=== PATIENT | female | born 1975 | race Caucasian/White ===

== ENCOUNTER → 2016-02-21 | Outpatient (CLI) | payer MEDICAID ==
[2016-02-21 08:06] LABS: Basophils # (A) 0.1 k/uL (0-0.2); Basophils % (A) 1 %; CH 29.3; CHCM 33.4; Eosinophils # (A) 0.3 k/uL (0-0.7); Eosinophils % (A) 4 %; HCT 39.5 % (34.0-46.0); HDW 2.73; HGB 12.8 gm/dL (11.4-16.0); Luc # (Auto) 0.13; Luc % (Auto) 2; Lymphocytes % (A) 30 %; MCH 28.6 pg (25.0-35.0); MCHC 32.5 g/dL (31.0-37.0); MCV 88.1 fL (80.0-100.0); Mean Platelet Volume 7.5; Monocytes # (A) 0.4 k/uL (0-1.0); Monocytes % (A) 6 %; Neutrophils # (A) 3.7 k/uL (1.3-7.7); Neutrophils % (A) 57 %; RBC 4.49 m/uL (3.80-5.40); RDW 13.4 % (11.5-15.5); WBC 6.6 k/uL (3.8-10.6); WBC (Perox) 6.83
[2016-02-21 08:25] LABS: ALT 44 U/L (9-52); AST 23 U/L (14-36); Alkaline Phosphatase 63 U/L (38-126); Anion Gap 12 mmol/L; Bilirubin, Delta 0.3 mg/dL (0.0-0.2); Blood Urea Nitrogen 11 mg/dL (7-17); Calcium 9.3 mg/dL (8.4-10.2); Carbon Dioxide 28 mmol/L (22-30); Chloride 104 mmol/L (98-107); Glucose 110 mg/dL (74-99); Non-African American GFR(MDRD) >60 (>60 ml/min/1.73 sqM); Potassium 4.4 mmol/L (3.5-5.1); Sodium 144 mmol/L (137-145); Total Bilirubin 0.5 mg/dL (0.2-1.3); Total Protein 7.3 g/dL (6.3-8.2)
== END | disposition home or self-care (01) ==
LOC: LABWHC1 07:32
PROVIDERS: ATTEND Family Medicine
DX: E03.9 Hypothyroidism, unspecified (principal)
CPT/HCPCS: 36415; 80053; 82248; 84439; 84443; 85025

== ENCOUNTER → 2016-06-13 | Outpatient (CLI) | payer MEDICAID ==
--- NOTE | 2016-06-14 08:17 | MR ---
EXAMINATION TYPE: MR knee LT wo con DATE OF EXAM: 06/13/2016 8:20 PM COMPARISON: MRI of the left knee dated 01/26/2013. HISTORY: ongoing pain x3 years gotten worse TECHNIQUE: Multiplanar, multisequence imaging of the left knee is performed without IV contrast. FINDINGS: MEDIAL MENISCUS: Anterior horn is intact. Subtle intrinsic signal within the posterior horn is unchan ged dating back to exam of 01/26/2013 and represents myxoid degeneration as there is no continuity wi th the articular surface. LATERAL MENISCUS: Again the posterior horn is intact. There is redemonstration of a complex tear with in the anterior horn with increasing size of a para meniscal cysts previously measured at 5.4 mm and currently measured at 8.8 mm. CRUCIATE LIGAMENTS: The cruciate ligaments are intact although there is generalized increased signal of the anterior cruciate ligament and thickening similar in appearance to the prior exam representing mucoid degeneration. Angle of the anterior cruciate ligament is within normal limits. COLLATERAL LIGAMENTS: The medial collateral ligament and lateral collateral ligament complex are inta ct and unremarkable. EXTENSOR MECHANISM: Visualized quadriceps and patellar tendons are intact. EFFUSION: There is increased degree of joint fluid that has developed in the interim now compatible with a small to moderate joint effusion. POPLITEAL CYST: Although there is a small amount of fluid adjacent to the medial tendon of the gastr ocnemius there is no measurable popliteal/San's cyst.. TRICOMPARTMENT SPACES: CARTILAGE: Near full-thickness cartilaginous loss is seen of the posterior medial femoral condyle. No underlying abnormal bone marrow signal is appreciated. Intrinsic T2 hyperintensity is present of the patellar cartilage along the lateral facet. Trochlear cartilage is unremarkable as is the medial pat ellar cartilage. There is unchanged minimal fissuring in the medial compartment cartilage in comparis on to the prior exam. BONE MARROW SIGNAL: Distal femoral lateral subchondral cystic changes are redemonstrated as well as s ubchondral cyst of the tibia deep to the mid medial lateral meniscal tear. Cortex appears intact as t here is no evidence of osteochondral defect. OTHER: No additional significant abnormality is appreciated. IMPRESSION: 1. Redemonstration of a complex evolving tear of the anterior horn of the lateral meniscus with assoc iated enlarging para-meniscal cyst.. 2. New subchondral cystic change within the lateral tibial plateau deep to the meniscal tear as seque la of complex meniscal injury. 3. 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 4. 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
== END | disposition home or self-care (01) ==
LOC: RADMRIMAIN 19:40
PROVIDERS: ATTEND Orthopaedic Surgery Sports Medicine
DX: S83.272A Complex tear of lateral meniscus, current injury, left knee, initial encounter (principal)

== ENCOUNTER → 2016-07-03 | Outpatient (CLI) | payer MEDICAID ==
[2016-07-03 08:44] LABS: Basophils # (A) 0.1 k/uL (0-0.2); Basophils % (A) 1 %; CH 29.6; Eosinophils # (A) 0.7 k/uL (0-0.7); Eosinophils % (A) 14 %; HCT 37.9 % (34.0-46.0); HGB 12.9 gm/dL (11.4-16.0); Luc # (Auto) 0.08; Luc % (Auto) 2; Lymphocytes # (A) 1.7 k/uL (1.0-4.8); Lymphocytes % (A) 33 %; MCH 29.8 pg (25.0-35.0); MCHC 34.1 g/dL (31.0-37.0); MCV 87.4 fL (80.0-100.0); Mean Platelet Volume 6.7; Monocytes # (A) 0.4 k/uL (0-1.0); Monocytes % (A) 7 %; Neutrophils # (A) 2.2 k/uL (1.3-7.7); Neutrophils % (A) 44 %; RBC 4.33 m/uL (3.80-5.40); RDW 13.2 % (11.5-15.5); WBC (Perox) 4.59
[2016-07-03 09:01] LABS: ALT 43 U/L (9-52); AST 24 U/L (14-36); Alkaline Phosphatase 58 U/L (38-126); Anion Gap 10 mmol/L; Bilirubin, Delta 0.3 mg/dL (0.0-0.2); Blood Urea Nitrogen 15 mg/dL (7-17); Calcium 9.2 mg/dL (8.4-10.2); Carbon Dioxide 23 mmol/L (22-30); Chloride 108 mmol/L (98-107); Glucose 113 mg/dL (74-99); Non-African American GFR(MDRD) >60 (>60 ml/min/1.73 sqM); Potassium 4.4 mmol/L (3.5-5.1); Sodium 141 mmol/L (137-145); Total Bilirubin 0.7 mg/dL (0.2-1.3); Total Protein 7.5 g/dL (6.3-8.2)
== END | disposition home or self-care (01) ==
LOC: LABWHC1 08:15
PROVIDERS: ATTEND Family Medicine
DX: F41.1 Generalized anxiety disorder (principal); R53.83 Other fatigue
CPT/HCPCS: 36415; 80053; 82248; 84439; 84443; 85025

== ENCOUNTER 2018-08-15 16:18 | Emergency (ER) | payer MEDICAID ==
[2018-08-15 17:25] VITALS: TEMP 97.5
[2018-08-15] MEDS ORDERED: methylPREDNISolone SOD SUCCI 125 MG/2 ML VIAL IV STA (17:36)
[2018-08-15] MEDS ORDERED: MORPHINE SULFATE 4 MG/ML SYRINGE IVP STA (17:36)
--- NOTE | 2018-08-15 17:39 | ED ---
Back Pain HPI - General Chief Complaint: Back Pain/Injury Stated Complaint: lower back pain/leg weakness Time Seen by Provider: 08/15/18 17:28 Source: patient Limitations: no limitations - History of Present Illness Initial Comments: Review 3-year-old female presenting with back pain that began on . Patient states that she felt a tearing sensation while getting dressed in her left paralumbar area. She states since then the pain has gotten progressively worse and is causing pressure radiating around to her bilateral groin. She states the pain is worse with movement and not improved or alleviated by anything. She's been trying Motrin at home with no relief. She denies any urinary symptoms, fever chills, back injections. She does state that she had a laminectomy 12 years prior. She denies saddle anesthesia. She states she has had 5-6 loose stools this week which is abnormal for her and she denies any history of inflammatory bowel disease. - Related Data Home Medications Medication Instructions Recorded Confirmed Protein Shake 1 can PO QAM 04/26/15 04/26/15 Thrive 2 tab PO QAM 04/26/15 04/26/15 Previous Rx's Medication Instructions Recorded Cyclobenzaprine [Flexeril] 10 mg PO TID PRN #12 tab 08/15/18 HYDROcodone/APAP 5-325MG [Fertile 1 tab PO Q4HR PRN 3 Days #18 tab 08/15/18 5-325] Allergies Allergy/AdvReac Type Severity Reaction Status Date / Time No Known Allergies Allergy Verified 08/15/18 17:25 Review of Systems ROS Statement: Those systems with pertinent positive or pertinent negative responses have been documented in the HPI. Review of Systems Constitutional: Denies fever, chills Eyes: Denies change in vision, Denies pain Ears, nose, mouth, throat: Denies headaches, Denies sore throat Cardiovascular: Denies chest pain. Denies palpitations Respiratory: Denies shortness of breath, Denies cough Gastrointestinal: Denies abdominal pain. Denies nausea, vomiting, diarrhea. Genitourinary: Denies hematuria, Denies infections Musculoskeletal: Positive pain, Denies swelling Integumentary: Denies rash Neurological: Denies headache, focal weakness, focal numbness Psychiatric: Denies anxiety, Denies depression Hematologic/Lymphatic: Denies easy bleeding or bruising ROS Other: All systems not noted in ROS Statement are negative. Past Medical History Past Medical History: No Reported History History of Any Multi-Drug Resistant Organisms: None Reported Date of last positivie culture/infection: 2005 MDRO Source:: nose Past Surgical History: Back Surgery Additional Past Surgical History / Comment(s): laminectomy, meniscus Past Anesthesia/Blood Transfusion Reactions: No Reported Reaction Past Psychological History: No Psychological Hx Reported Smoking Status: Never smoker Past Alcohol Use History: Occasional Past Drug Use History: None Reported - Past Family History Father Family Medical History: Cancer, Coronary Artery Disease (CAD) Additional Family Medical History / Comment(s): emphysema, bladder ca Mother Family Medical History: Congestive Heart Failure (CHF), Coronary Artery Disease (CAD), Diabetes Mellitus, Renal Disease Additional Family Medical History / Comment(s): cabg x 4, emphysema General Exam - General Exam Comments Initial Comments: General: Awake, alert, No acute Distress HENT: Normocephalic. Atraumatic Eyes: PERRL. EOMI. No scleral icterus. No injected conjunctiva Neck: Full ROM Chest/Lungs: Clear to auscultation bilaterally. No wheezing, rhonchi, or rales Cardiac: Regular rate, rhythm. No murmurs or rubs Abdomen/GI: Soft, nontender, nondistended. No rebound, guarding, or rigidity. Musculoskeletal: Full ROM. No midline cervical, thoracic, lumbar pain. Tenderness to palpation at the left paraspinal thoracolumbar junction. L2 through S1 sensation intact bilaterally Skin: Warm, dry, intact Neurologic: A/Ox3, no weakness, no sensory deficit, no abnormal gait, no coordination deficit Limitations: no limitations Course Vital Signs 08/15/18 08/15/18 08/15/18 17:22 20:33 21:58 Temperature 97.5 F L 97.5 F L Pulse Rate 103 H 77 77 Respiratory 18 16 16 Rate Blood Pressure 139/79 137/73 137/73 O2 Sat by Pulse 98 97 97 Oximetry Medical Decision Making - Medical Decision Making 43 yoF presenting with back pain. On initial exam the patient is awake, alert, and in NAD. VSS. The patient has no cauda equina symptoms. She is neurologically intact. Patient's laboratory workup was unremarkable. She had no leukocytosis. He has no history of back injections. Her imaging showed a hiatal hernia. The patient described a large belch before the pain started. It is possible that her symptoms are secondary to the hiatal hernia. She is not having any nausea or vomiting and she is still passing gas. Her symptoms improved with treatment while in the emergency department, however they did not completely resolved. I offered the patient admission but this time she declined stating she would like to follow up outpatient with her physician. She was also given general surgery follow up information. No further emergent workup indicated. The patient was given return to ED instructions. They were instructed to follow up with their primary care provider. Stable for discharge at this time. - Lab Data Result diagrams: 08/15/18 18:13 08/15/18 18:13 Lab Results 08/15/18 08/15/18 08/15/18 Range/Units 18:13 18:13 18:21 WBC 7.3 (3.8-10.6) k/uL RBC 4.57 (3.80-5.40) m/uL Hgb 12.4 (11.4-16.0) gm/dL Hct 38.7 (34.0-46.0) % MCV 84.9 (80.0-100.0) fL MCH 27.3 (25.0-35.0) pg MCHC 32.1 (31.0-37.0) g/dL RDW 13.8 (11.5-15.5) % Plt Count 275 (150-450) k/uL Neutrophils % 58 % Lymphocytes % 25 % Monocytes % 4 % Eosinophils % 11 % Basophils % 1 % Neutrophils # 4.2 (1.3-7.7) k/uL Lymphocytes # 1.8 (1.0-4.8) k/uL Monocytes # 0.3 (0-1.0) k/uL Eosinophils # 0.8 H (0-0.7) k/uL Basophils # 0.1 (0-0.2) k/uL Sodium 140 (137-145) mmol/L Potassium 4.2 (3.5-5.1) mmol/L Chloride 107 (98-107) mmol/L Carbon Dioxide 23 (22-30) mmol/L Anion Gap 10 mmol/L BUN 16 (7-17) mg/dL Creatinine 1.04 (0.52-1.04) mg/dL Est GFR (CKD-EPI)AfAm 76 (>60 ml/min/1.73 sqM) Est GFR (CKD-EPI)NonAf 66 (>60 ml/min/1.73 sqM) Glucose 93 (74-99) mg/dL Calcium 9.9 (8.4-10.2) mg/dL Total Bilirubin 0.3 (0.2-1.3) mg/dL Conjugated Bilirubin 0.0 (0.0-0.3) mg/dL Unconjugated Bilirubin 0.3 (0.0-1.1) mg/dL Delta Bilirubin 0.0 (0.0-0.2) mg/dL AST 22 (14-36) U/L ALT 24 (9-52) U/L Alkaline Phosphatase 69 (38-126) U/L Total Protein 7.8 (6.3-8.2) g/dL Albumin 4.5 (3.5-5.0) g/dL Lipase 77 (23-300) U/L HCG, Qual Not Detected Urine Color Yellow Urine Appearance Clear (Clear) Urine pH 5.5 (5.0-8.0) Ur Specific [place] 1.027 (1.001-1.035) Urine Protein Negative (Negative) Urine Glucose (UA) Negative (Negative) Urine Ketones Negative (Negative) Urine Blood Small H (Negative) Urine Nitrite Negative (Negative) Urine Bilirubin Negative (Negative) Urine Urobilinogen <2.0 (<2.0) mg/dL Ur Leukocyte Esterase Small H (Negative) Urine RBC 1 (0-5) /hpf Urine WBC 2 (0-5) /hpf Ur Squamous Epith Cells 4 (0-4) /hpf Urine Mucus Rare H (None) /hpf Disposition Clinical Impression: Hiatal hernia, Back pain Disposition: HOME SELF-CARE Condition: Good Instructions (If sedation given, give patient instructions): Hiatal Hernia (ED), Thoracic Back Strain (ED), Laparoscopic Hiatal Hernia Repair (DC) Prescriptions: Cyclobenzaprine [Flexeril] 10 mg PO TID PRN #12 tab PRN Reason: Pain HYDROcodone/APAP 5-325MG [Fertile 5-325] 1 tab PO Q4HR PRN 3 Days #18 tab PRN Reason: Pain Is patient prescribed a controlled substance at d/c from ED?: Yes Referrals: Dre Peña MD [Primary Care Provider] - 1-2 days Janki Shaw MD [STAFF PHYSICIAN] - 1-2 days
[2018-08-15] MEDS ORDERED: KETOROLAC 30 MG/ML 1 ML VIAL IVP STA ×2 (18:18→20:07)
[2018-08-15 18:40] LABS: Basophils # (A) 0.1 k/uL (0-0.2); Basophils % (A) 1 %; Eosinophils # (A) 0.8 k/uL (0-0.7); Eosinophils % (A) 11 %; HCT 38.7 % (34.0-46.0); HGB 12.4 gm/dL (11.4-16.0); Lymphocytes # (A) 1.8 k/uL (1.0-4.8); Lymphocytes % (A) 25 %; MCH 27.3 pg (25.0-35.0); MCHC 32.1 g/dL (31.0-37.0); MCV 84.9 fL (80.0-100.0); Mean Platelet Volume 6.6; Monocytes # (A) 0.3 k/uL (0-1.0); Monocytes % (A) 4 %; Neutrophils # (A) 4.2 k/uL (1.3-7.7); Neutrophils % (A) 58 %; Platelet Count 275 k/uL (150-450); RBC 4.57 m/uL (3.80-5.40); RDW 13.8 % (11.5-15.5); WBC 7.3 k/uL (3.8-10.6)
[2018-08-15 18:45] LABS: Appearance,Urine Clear (Clear); Bilirubin,Urine Negative (Negative); Blood,Urine Small (Negative); Color,Urine Yellow; Glucose,Urine (UA) Negative (Negative); Ketones,Urine Negative (Negative); Leukocyte Esterase,Urine Small (Negative); Mucus,Urine Rare /hpf; Nitrite,Urine Negative (Negative); PH, Urine 5.5 (5.0-8.0); Protein,Urine Negative (Negative); RBC,Urine 1 /hpf (0-5); Specific Gravity,Urine 1.027 (1.001-1.035); Squamous Epithelial Cell,Urine 4 /hpf (0-4); Urobilinogen,Urine <2.0 mg/dL (<2.0)
[2018-08-15 18:54] LABS: HCG,Qualitative Serum Not Detected
[2018-08-15 18:56] LABS: ALT 24 U/L (9-52); AST 22 U/L (14-36); African American GFR (CKD) 76 (>60 ml/min/1.73 sqM); Albumin 4.5 g/dL (3.5-5.0); Alkaline Phosphatase 69 U/L (38-126); Anion Gap 10 mmol/L; Bilirubin,Unconjugated 0.3 mg/dL (0.0-1.1); Blood Urea Nitrogen 16 mg/dL (7-17); Calcium 9.9 mg/dL (8.4-10.2); Carbon Dioxide 23 mmol/L (22-30); Chloride 107 mmol/L (98-107); Glucose 93 mg/dL (74-99); Lipase 77 U/L (23-300); Potassium 4.2 mmol/L (3.5-5.1); Sodium 140 mmol/L (137-145); Total Bilirubin 0.3 mg/dL (0.2-1.3); Total Protein 7.8 g/dL (6.3-8.2)
--- NOTE | 2018-08-15 19:23 | XR ---
EXAMINATION TYPE: XR lumbar spine 2 or 3V DATE OF EXAM: 08/15/2018 COMPARISON: NONE HISTORY: 43-year-old female low back pain TECHNIQUE: 3 views FINDINGS: Rotary levoconvex scoliosis. There is interbody fusion at L4-L5 as well as posterior facet fusion dem onstrated. Vertebral body heights are preserved. Trace grade 1 retrolisthesis L2-L3 and L3-L4. IMPRESSION: Rotary levoconvex scoliosis. Posterior and interbody fusion at L4-L5. Trace grade 1 retrolisthesis at L2-L3 L3-L4. No vertebral collapse.
[2018-08-15] MEDS ORDERED: HYDROcodone/APAP 5-325MG 1 EACH TAB PO STA (20:06)
[2018-08-15 20:35] VITALS: BP 137/73; PULSE 77; RESP 16
--- NOTE | 2018-08-15 21:39 | CT ---
EXAMINATION TYPE: CT abdomen pelvis wo con DATE OF EXAM: 08/15/2018 COMPARISON: None HISTORY: 43-year-old female Left sided low back pain. CT DLP: 1931.2 mGycm. Automated exposure control for dose reduction was used. TECHNIQUE: Contiguous axial scanning of the abdomen and pelvis without IV contrast. Coronal and sagit kole reconstructions performed. FINDINGS: Heart normal size without pericardial effusion. Lung bases clear without pleural effusion. There is a moderate size hiatal hernia. Liver measures 20.1 cm with low attenuation. Some focal fatty sparing along the gallbladder fossa and rosalinda hepatis. Gallbladder, adrenal glands, right kidney, left kidney, spleen, and pancreas show no gross abnormalit y by noncontrast CT. No dilated small bowel, free fluid, or free air. No mesenteric or retroperitoneal lymphadenopathy. Normal appendix. Scattered mild stool. Occasional left-sided colonic diverticular change. No pericolonic inflammatory process. Bladder nondistended. Uterus is anteverted. Both ovaries are visualized. No abnormal fluid collection in the pelvis or pelvic lymphadenopathy. Bones: Levoconvex scoliosis with interbody and posterior lumbar fusion at L4-L5. IMPRESSION: 1. Hepatomegaly (20.1 cm) with hepatic steatosis. Correlate with LFTs, lipid profile, and patient ri sk factors. 2. Moderate size hiatal hernia. 3. Occasional left-sided colonic diverticulosis. No evidence for acute diverticulitis.
[2018-08-15] MEDS ORDERED: CYCLOBENZAPRINE 10MG STARTER 3 TAB BTL PO STA (21:46)
== END 2018-08-15 21:58 | disposition home or self-care (01) ==
LOC: EC 16:18
DX: K44.9 Diaphragmatic hernia without obstruction or gangrene (principal); M54.5 Low back pain
CPT/HCPCS: 36415; 80048; 80076; 83690; 85025; 81001; 84703; 72100; 74176; 99284; 96374; 96375; 96376; J2930; J1885

== ENCOUNTER 2018-11-08 10:45 | Day surgery (SDC) | payer MEDICAID ==
[2018-11-05 08:56] VITALS: BMI 39.4
[~2018-11-08 10:45] MED LIST: LACTATED RINGERS 1,000 ML IV SCH; LIDOCAINE 1% 20 ML VIAL (10MG/ML) FOR IV START INTRADERMA PRN
[2018-11-08 11:09] VITALS: TEMP 98.9
[2018-11-08] MEDS ORDERED: LIDOCAINE 1% INJ 10MG/ML (20 ML MDV) ONE (11:46)
[2018-11-08] MEDS ORDERED: PROPOFOL 10 MG/ML 20 ML VIAL IV ONE (11:46)
--- NOTE | 2018-11-08 11:59 | P.PCN ---
Date of Procedure: 11/08/18 Procedure(s) Performed: Preoperative Dx: GERD Postoperative Dx: Mild gastritis, small hiatal hernia, mild distal esophagitis Procedure: EGD with Bx Anesthesia: Sedation Endoscopist: Dr. Rivera Specimens: Antrum, GE junction Endoscopic Procedure: The patient was on the endoscopy table in the left decubitus position. The Olympus gastroscope was inserted into the oropharynx and passed under direct visualization to the region of the third portion of the duodenum. From that point the scope was slowly withdrawn inspecting all surfaces carefully. There were no neoplastic inflammatory or polypoid lesions throughout the duodenum. The pylorus was widely patent. The stomach was carefully inspected. There was mild gastritis present. A biopsy of the antrum took place to rule out H. pylori. Retroflexion revealed a small sliding hiatal hernia. The GE junction was present 1.5 cm above the diaphragmatic hiatus at the GE junction there was mild non-circumferential inflammatory changes. Biopsy of the GE junction took place. There was no evidence of Ortiz's esophagus. The remainder the esophagus appear normal. The patient was then taken to the recovery room in stable condition per anesthesia guidelines. Recommendations: Await biopsy results. Continue antiacid therapy. We'll discuss options of hiatal hernia repair with fundoplication further with the patient.
[2018-11-08 12:07] VITALS: BP 128/78; PULSE 105; RESP 16
[2018-11-08] MEDS ORDERED: ONDANSETRON 4 MG/2 ML VIAL IVP ONE (12:21)
== END 2018-11-08 12:55 | disposition home or self-care (01) ==
LOC: ORWHC2ENDO 10:45
PROVIDERS: ATTEND Surgery
DX: K21.0 Gastro-esophageal reflux disease with esophagitis (principal); K29.50 Unspecified chronic gastritis without bleeding; K44.9 Diaphragmatic hernia without obstruction or gangrene; Z79.891 Long term (current) use of opiate analgesic; Z79.899 Other long term (current) drug therapy; Z83.6 Family history of other diseases of the respiratory system; Z83.3 Family history of diabetes mellitus; Z82.49 Family history of ischemic heart disease and other diseases of the circulatory system; Z84.1 Family history of disorders of kidney and ureter
CPT/HCPCS: 81025; 88305; 88312; 43239; J2405; J2001; J2704

== ENCOUNTER → 2020-04-05 | Outpatient (CLI) | payer BC ==
--- NOTE | 2020-04-05 12:44 | XR ---
EXAMINATION TYPE: XR abdomen 1V DATE OF EXAM: 04/05/2020 COMPARISON: NONE HISTORY: Pain TECHNIQUE: One view abdominal series FINDINGS: The osseous structures are intact. The bowel gas pattern is nonspecific. Scoliotic curvature of the spine with postsurgical change L5-S1. Arthropathy of the hips. IMPRESSION: 1. Nonspecific abdomen.
== END | disposition home or self-care (01) ==
LOC: RADXRMAIN 12:03
PROVIDERS: ATTEND Family Medicine
DX: R10.30 Lower abdominal pain, unspecified (principal); R35.0 Frequency of micturition
CPT/HCPCS: 74018

== ENCOUNTER → 2020-04-18 | Outpatient (CLI) | payer BC ==
--- NOTE | 2020-04-18 16:39 | US ---
EXAMINATION TYPE: US transvaginal plus Dopplers DATE OF EXAM: 04/18/2020 COMPARISON: None CLINICAL HISTORY: 45-year-old female R10.9 Abd/Pelvic pain, R10.30 lower abd pain. Pain x 3 weeks. . TECHNIQUE: Transvaginal (TV). Date of LMP: Unknown. FINDINGS: EXAM MEASUREMENTS: Uterus: 10.9 x 5.9 x 6.1 cm Endometrial Stripe: 0.82 cm Right Ovary: Not seen. Left Ovary: 3.2 x 2.3 x 1.9 cm for a volume of 7.1 mL 1. Uterus: Anteverted. Appears slightly enlarged enlarged with slightly heterogeneous myometrium. A vague rounded area within the anterior uterine body measures 2.1 x 1.6 x 1.3 cm. 2. Endometrium: Within normal limits. 3. Right Ovary: Not seen. 4. Left Ovary: Follicular change, dominant follicle measuring 1.1 x 1.0 x 1.0 cm. Spectral, color and waveform doppler imaging shows good arterial and venous flow within the left ov karthikeyan. Right ovary not seen. Patient was having intense pain on the left side, so Doppler was performed . Doppler was also on doctor's imaging order. 5. Bilateral Adnexa: Appear wnl. 6. Posterior cul-de-sac: Appears wnl. IMPRESSION: 1. Ultrasound and Doppler assessment of the left ovary shows normal follicular change without sonogra phic evidence for ovarian torsion. 2. Unable to visualize the right ovary. 3. Slightly heterogeneous myometrium could reflect diffuse small fibroid change. There is suggestion of a 2.1 cm focal intramural fibroid along the anterior uterine body.
== END ==
LOC: RADUSWWP 14:58
PROVIDERS: ATTEND Family Medicine
DX: R10.2 Pelvic and perineal pain (principal)
CPT/HCPCS: 76830; 93976

== ENCOUNTER 2020-12-27 19:11 | Emergency (ER) | payer BC ==
[2020-12-27 21:53] VITALS: RESP 18
[2020-12-27] MEDS ORDERED: IBUPROFEN 800 MG TAB PO STA (23:01)
[2020-12-27] MEDS ORDERED: methylPREDNISolone SOD SUCCI 125 MG/2 ML VIAL IV STA (23:02)
[2020-12-27] MEDS ORDERED: SODIUM CHLORIDE 0.9% 500 ML 500 ML IV STA (23:02)
--- NOTE | 2020-12-27 23:07 | ED ---
General Adult HPI - General Chief complaint: Recheck/Abnormal Lab/Rx Stated complaint: COVID + fever, cough, pneumiona Time Seen by Provider: 12/27/20 23:00 Source: patient, RN notes reviewed Mode of arrival: ambulatory Limitations: no limitations - History of Present Illness Initial comments: This is a well-appearing 45-year-old female who presents to the emergency room alert and oriented 4 with complaints of cough for 2-1/2 weeks. Patient states that she was seen at urgent care 2 days ago and tested positive for Covid. She was put on a Z-Mitesh for bilateral pneumonia. She states she continues to have fevers and was told to come to the emergency room for evaluation. She states that she was cutting wood 2 1/2 weeks ago with her and there was a lot of mold and they're concerned for a fungal infection of the lungs. She has nausea but denies any vomiting. She has decreased appetite and persistent cough. She states that her chest feels tight with cough which is nonproductive. -: week(s) (18) Location: chest Severity scale (1-10): 0 Consistency: constant Improves with: none Worsens with: none Associated Symptoms: cough, fever/chills, nausea/vomiting, shortness of breath Treatments Prior to Arrival: other (Z-Mitesh) - Related Data Home Medications Medication Instructions Recorded Confirmed diazePAM [Valium] 5 mg PO DAILY PRN 11/05/18 11/08/18 Previous Rx's Medication Instructions Recorded Albuterol Inhaler [Ventolin Hfa 2 puff INHALATION RT-QID #8 gm 12/28/20 Inhaler] predniSONE 50 mg PO DAILY #5 tab 12/28/20 Allergies Allergy/AdvReac Type Severity Reaction Status Date / Time No Known Allergies Allergy Verified 12/27/20 20:41 Review of Systems ROS Statement: Those systems with pertinent positive or pertinent negative responses have been documented in the HPI. ROS Other: All systems not noted in ROS Statement are negative. Past Medical History Past Medical History: GERD/Reflux History of Any Multi-Drug Resistant Organisms: MRSA Date of last positivie culture/infection: 2009 MDRO Source:: left lower leg Past Surgical History: Back Surgery, Orthopedic Surgery Additional Past Surgical History / Comment(s): laminectomy, meniscus left knee Past Anesthesia/Blood Transfusion Reactions: Postoperative Nausea & Vomiting (PONV) Past Psychological History: Anxiety Smoking Status: Never smoker Past Alcohol Use History: Occasional Past Drug Use History: None Reported - Past Family History Father Family Medical History: Cancer, Coronary Artery Disease (CAD) Additional Family Medical History / Comment(s): emphysema, bladder ca Mother Family Medical History: Congestive Heart Failure (CHF), Coronary Artery Disease (CAD), Diabetes Mellitus, Renal Disease Additional Family Medical History / Comment(s): cabg x 4, emphysema General Exam Limitations: no limitations General appearance: alert, in no apparent distress Head exam: Present: atraumatic, normocephalic, normal inspection Eye exam: Present: normal appearance, EOMI ENT exam: Present: normal exam, normal oropharynx, mucous membranes moist Neck exam: Present: normal inspection, full ROM. Absent: tenderness, meningismus, lymphadenopathy, thyromegaly Respiratory exam: Present: normal lung sounds bilaterally. Absent: respiratory distress, wheezes, rales, rhonchi, stridor Cardiovascular Exam: Present: normal rhythm, tachycardia, normal heart sounds. Absent: systolic murmur, diastolic murmur, rubs, gallop, clicks, JVD Extremities exam: Present: normal inspection, full ROM, normal capillary refill. Absent: pedal edema, joint swelling, calf tenderness Neurological exam: Present: alert, oriented X3 Psychiatric exam: Present: normal affect, normal mood Skin exam: Present: warm, dry, intact, normal color. Absent: rash, cyanosis, d iaphoretic Course Vital Signs 12/27/20 12/27/20 12/28/20 20:41 21:51 00:11 Temperature 101.9 F H 98.3 F Pulse Rate 122 H 98 Respiratory 19 18 18 Rate Blood Pressure 131/83 132/74 O2 Sat by Pulse 95 96 Oximetry EKG Findings - EKG Results: EKG: sinus rhythm (Ventricular rate 91, IN interval 0.154, QRS 0.82, QTC 0.45) Medical Decision Making - Medical Decision Making There is no evidence of leukocytosis. Electrolytes are unremarkable. D-dimer is negative. Troponin is negative at 0.012 and EKG shows sinus rhythm. Chest x-ray shows no acute cardiopulmonary disease. Lungs are clear to auscultation. Patient was prescribed Z-Mitesh and Phenergan 2 days ago at urgent care. She'll be directed to continue Tylenol for fevers. Her temperature came down to 98.3, oxygen saturation is 96% on room air and heart rate 98. Patient was prescribed prednisone for her cough in addition to an albuterol inhaler. She is directed to follow up with her primary care doctor next week and return if any new or worsening symptoms. Case was discussed with Dr. Durbin. - Lab Data Result diagrams: 12/27/20 23:39 12/27/20 23:39 Lab Results 12/27/20 12/27/20 12/27/20 Range/Units 23:39 23:39 23:39 WBC 4.1 (3.8-10.6) k/uL RBC 4.61 (3.80-5.40) m/uL Hgb 12.3 (11.4-16.0) gm/dL Hct 38.3 (34.0-46.0) % MCV 83.0 (80.0-100.0) fL MCH 26.7 (25.0-35.0) pg MCHC 32.1 (31.0-37.0) g/dL RDW 15.4 (11.5-15.5) % Plt Count 151 (150-450) k/uL MPV 7.8 Neutrophils % 71 % Lymphocytes % 21 % Monocytes % 5 % Eosinophils % 1 % Basophils % 0 % Neutrophils # 2.9 (1.3-7.7) k/uL Lymphocytes # 0.9 L (1.0-4.8) k/uL Monocytes # 0.2 (0-1.0) k/uL Eosinophils # 0.0 (0-0.7) k/uL Basophils # 0.0 (0-0.2) k/uL D-Dimer 0.38 (<0.60) mg/L FEU Sodium 134 L (137-145) mmol/L Potassium 3.8 (3.5-5.1) mmol/L Chloride 101 (98-107) mmol/L Carbon Dioxide 24 (22-30) mmol/L Anion Gap 9 mmol/L BUN 7 (7-17) mg/dL Creatinine 1.09 H (0.52-1.04) mg/dL Est GFR (CKD-EPI)AfAm 71 (>60 ml/min/1.73 sqM) Est GFR (CKD-EPI)NonAf 62 (>60 ml/min/1.73 sqM) Glucose 148 H (74-99) mg/dL Plasma Lactic Acid Luis Fernando (0.7-2.0) mmol/L Calcium 8.5 (8.4-10.2) mg/dL Magnesium 1.9 (1.6-2.3) mg/dL Total Bilirubin 0.4 (0.2-1.3) mg/dL AST 32 (14-36) U/L ALT 32 (4-34) U/L Alkaline Phosphatase 73 (38-126) U/L Troponin I (0.000-0.034) ng/mL Total Protein 7.4 (6.3-8.2) g/dL Albumin 4.1 (3.5-5.0) g/dL 12/27/20 12/27/20 Range/Units 23:39 23:39 WBC (3.8-10.6) k/uL RBC (3.80-5.40) m/uL Hgb (11.4-16.0) gm/dL Hct (34.0-46.0) % MCV (80.0-100.0) fL MCH (25.0-35.0) pg MCHC (31.0-37.0) g/dL RDW (11.5-15.5) % Plt Count (150-450) k/uL MPV Neutrophils % % Lymphocytes % % Monocytes % % Eosinophils % % Basophils % % Neutrophils # (1.3-7.7) k/uL Lymphocytes # (1.0-4.8) k/uL Monocytes # (0-1.0) k/uL Eosinophils # (0-0.7) k/uL Basophils # (0-0.2) k/uL D-Dimer (<0.60) mg/L FEU Sodium (137-145) mmol/L Potassium (3.5-5.1) mmol/L Chloride (98-107) mmol/L Carbon Dioxide (22-30) mmol/L Anion Gap mmol/L BUN (7-17) mg/dL Creatinine (0.52-1.04) mg/dL Est GFR (CKD-EPI)AfAm (>60 ml/min/1.73 sqM) Est GFR (CKD-EPI)NonAf (>60 ml/min/1.73 sqM) Glucose (74-99) mg/dL Plasma Lactic Acid Luis Fernando 1.6 (0.7-2.0) mmol/L Calcium (8.4-10.2) mg/dL Magnesium (1.6-2.3) mg/dL Total Bilirubin (0.2-1.3) mg/dL AST (14-36) U/L ALT (4-34) U/L Alkaline Phosphatase (38-126) U/L Troponin I <0.012 (0.000-0.034) ng/mL Total Protein (6.3-8.2) g/dL Albumin (3.5-5.0) g/dL Disposition Clinical Impression: Respiratory tract infection due to 2019-nCoV Disposition: HOME SELF-CARE Condition: Good Additional Instructions: Use the albuterol inhaler 2 puffs every 4 hours as needed. Take the prednisone as prescribed for the next 5 days. Do not take Motrin while taking prednisone. Return to the emergency room with any new or worsening symptoms. Follow-up with your doctor next week. Prescriptions: predniSONE 50 mg PO DAILY #5 tab Albuterol Inhaler [Ventolin Hfa Inhaler] 2 puff INHALATION RT-QID #8 gm Is patient prescribed a controlled substance at d/c from ED?: No Referrals: Dre Peña MD [Primary Care Provider] - 1-2 days Time of Disposition: 00:57
--- NOTE | 2020-12-27 23:37 | XR ---
EXAMINATION TYPE: XR chest 2V DATE OF EXAM: 12/27/2020 COMPARISON: 04/25/2015 HISTORY: Cough TECHNIQUE: 2 views FINDINGS: Heart and mediastinum are normal. Lungs are clear of consolidation. There are no hilar mass es. Bony thorax is intact. There is slight thoracic dextroscoliosis. IMPRESSION: No active cardiopulmonary disease. No change.
[2020-12-28 00:03] LABS: Basophils % (A) 0 %; Eosinophils % (A) 1 %; HCT 38.3 % (34.0-46.0); HGB 12.3 gm/dL (11.4-16.0); Lymphocytes # (A) 0.9 k/uL (1.0-4.8); Lymphocytes % (A) 21 %; MCH 26.7 pg (25.0-35.0); MCHC 32.1 g/dL (31.0-37.0); Mean Platelet Volume 7.8; Monocytes # (A) 0.2 k/uL (0-1.0); Monocytes % (A) 5 %; Neutrophils # (A) 2.9 k/uL (1.3-7.7); Neutrophils % (A) 71 %; Platelet Count 151 k/uL (150-450); RBC 4.61 m/uL (3.80-5.40); RDW 15.4 % (11.5-15.5); WBC 4.1 k/uL (3.8-10.6)
[2020-12-28 00:12] VITALS: BP 132/74; PULSE 98; TEMP 98.3
[2020-12-28 00:19] LABS: Albumin 4.1 g/dL (3.5-5.0); Calcium 8.5 mg/dL (8.4-10.2); Magnesium 1.9 mg/dL (1.6-2.3); Potassium 3.8 mmol/L (3.5-5.1); Total Bilirubin 0.4 mg/dL (0.2-1.3); Total Protein 7.4 g/dL (6.3-8.2)
[2020-12-28] MEDS ORDERED: ALBUTEROL HFA INHALER INHALATION STA (00:55)
== END 2020-12-28 01:20 | disposition home or self-care (01) ==
LOC: EC 19:11
DX: U07.1 COVID-19 (principal); K21.9 Gastro-esophageal reflux disease without esophagitis; F41.9 Anxiety disorder, unspecified; Z79.52 Long term (current) use of systemic steroids; Z79.899 Other long term (current) drug therapy; Z83.3 Family history of diabetes mellitus; Z82.49 Family history of ischemic heart disease and other diseases of the circulatory system
CPT/HCPCS: 99284 ×2; 96374 ×2; 96361 ×3; 36415; 93005; 85379; 80053; 83605; 83735; 84484; 85025; 71046; J2930

== ENCOUNTER 2020-12-31 08:11 | Emergency (ER) | payer BC ==
[2020-12-31 08:29] VITALS: TEMP 98.1
[2020-12-31] MEDS ORDERED: DEXAMETHASONE SOD PHOSPHATE 10 MG/ML 1 ML VIAL IVP SCH (13:15)
[2020-12-31 13:46] LABS: Basophils % (A) 0 %; Eosinophils % (A) 0 %; HCT 34.4 % (34.0-46.0); HGB 11.2 gm/dL (11.4-16.0); Lymphocytes # (A) 0.4 k/uL (1.0-4.8); Lymphocytes % (A) 7 %; MCHC 32.6 g/dL (31.0-37.0); Mean Platelet Volume 8.2; Monocytes # (A) 0.2 k/uL (0-1.0); Monocytes % (A) 4 %; Neutrophils # (A) 4.2 k/uL (1.3-7.7); Neutrophils % (A) 86 %; Platelet Count 162 k/uL (150-450); RBC 4.14 m/uL (3.80-5.40); RDW 15.4 % (11.5-15.5); WBC 4.9 k/uL (3.8-10.6)
[2020-12-31 13:58] LABS: ALT 25 U/L (4-34); AST 25 U/L (14-36); African American GFR (CKD) >90 (>60 ml/min/1.73 sqM); Albumin 3.9 g/dL (3.5-5.0); Alkaline Phosphatase 67 U/L (38-126); Anion Gap 8 mmol/L; Blood Urea Nitrogen 11 mg/dL (7-17); Calcium 8.7 mg/dL (8.4-10.2); Carbon Dioxide 25 mmol/L (22-30); Chloride 103 mmol/L (98-107); Glucose 158 mg/dL (74-99); Non-African American GFR(CKD) 87 (>60 ml/min/1.73 sqM); Potassium 3.9 mmol/L (3.5-5.1); Sodium 136 mmol/L (137-145); Total Bilirubin 0.5 mg/dL (0.2-1.3); Total Protein 7.2 g/dL (6.3-8.2)
[2020-12-31 14:04] LABS: INR 0.9 (<1.2); Partial Thromboplastin Time 22.7 sec (22.0-30.0)
--- NOTE | 2020-12-31 16:06 | XR ---
EXAMINATION TYPE: XR chest 2V DATE OF EXAM: 12/31/2020 COMPARISON: 12/27/2020 INDICATION: Cough short of breath. TECHNIQUE: Frontal and lateral views of the chest are obtained. FINDINGS: The heart size is normal. The pulmonary vasculature is normal. Some patchy infiltrates scattered through the bilateral lung wade. Correlate for atypical pneumonia . IMPRESSION: 1. Mild scattered bilateral patchy infiltrates. Findings are nonspecific. Correlate for atypical pne umonia.
[2020-12-31] MEDS ORDERED: guaiFENesin-Coden 100-10MG/5ML 10 ML CUP PO STA (16:18)
[2020-12-31] MEDS ORDERED: AZITHROMYCIN 500 MG TAB PO STA (16:18)
[2020-12-31 16:44] VITALS: BP 142/86; PULSE 72; RESP 22
--- NOTE | 2020-12-31 17:18 | ED ---
SOB HPI - General Chief Complaint: Shortness of Breath Stated Complaint: Chest Pain, SOB Time Seen by Provider: 12/31/20 12:46 Source: patient, family Mode of arrival: wheelchair Limitations: no limitations - History of Present Illness Initial Comments: Patient presents with shortness of breath. She has a recent Covid diagnosis. She has no pain or pressure or tightness in the chest. She does have a cough. She has no nausea or vomiting. She has no focal weakness, lightheadedness or dizziness. She has no palpitations. She has no swelling in the arms or legs. She tried using albuterol with minimal relief. - Related Data Home Medications Medication Instructions Recorded Confirmed Albuterol Nebulized [Ventolin 2.5 mg INHALATION RT-Q6H PRN 12/31/20 12/31/20 Nebulized] Fexofenadine HCl [Wanda Allergy] 180 mg PO DAILY 12/31/20 12/31/20 guaiFENesin [Mucinex] 1,200 mg PO BID 12/31/20 12/31/20 Previous Rx's Medication Instructions Recorded Albuterol Inhaler [Ventolin Hfa 2 puff INHALATION RT-QID #8 gm 12/28/20 Inhaler] predniSONE 50 mg PO DAILY #5 tab 12/28/20 guaiFENesin-Coden 100-10MG/5ML 10 ml PO Q6H PRN 3 Days #120 ml 12/31/20 [Robitussin AC] methylPREDNISolone Dose Pack 4 mg PO DIRECTED #21 tab 12/31/20 [Medrol Dose Pack] Allergies Allergy/AdvReac Type Severity Reaction Status Date / Time No Known Allergies Allergy Verified 12/31/20 13:42 Review of Systems ROS Statement: Those systems with pertinent positive or pertinent negative responses have been documented in the HPI. ROS Other: All systems not noted in ROS Statement are negative. Past Medical History Past Medical History: GERD/Reflux History of Any Multi-Drug Resistant Organisms: MRSA Date of last positivie culture/infection: 2009 MDRO Source:: left lower leg Past Surgical History: Back Surgery, Orthopedic Surgery Additional Past Surgical History / Comment(s): laminectomy, meniscus left knee Past Anesthesia/Blood Transfusion Reactions: Postoperative Nausea & Vomiting ( PONV) Past Psychological History: Anxiety Smoking Status: Never smoker Past Alcohol Use History: Occasional Past Drug Use History: None Reported - Past Family History Father Family Medical History: Cancer, Coronary Artery Disease (CAD) Additional Family Medical History / Comment(s): emphysema, bladder ca Mother Family Medical History: Congestive Heart Failure (CHF), Coronary Artery Disease (CAD), Diabetes Mellitus, Renal Disease Additional Family Medical History / Comment(s): cabg x 4, emphysema General Exam Limitations: no limitations General appearance: alert, in no apparent distress Head exam: Present: atraumatic, normocephalic, normal inspection Eye exam: Present: normal appearance, PERRL, EOMI. Absent: scleral icterus, conjunctival injection, periorbital swelling ENT exam: Present: normal exam, mucous membranes moist Neck exam: Present: normal inspection. Absent: tenderness, meningismus, lymphadenopathy Respiratory exam: Present: normal lung sounds bilaterally. Absent: respiratory distress, wheezes, rales, rhonchi, stridor Cardiovascular Exam: Present: regular rate, normal rhythm, normal heart sounds. Absent: systolic murmur, diastolic murmur, rubs, gallop, clicks GI/Abdominal exam: Present: soft, normal bowel sounds. Absent: distended, tenderness, guarding, rebound, rigid Extremities exam: Present: normal inspection, full ROM, normal capillary refill. Absent: tenderness, pedal edema, joint swelling, calf tenderness Back exam: Present: normal inspection Neurological exam: Present: alert, oriented X3, CN II-XII intact Psychiatric exam: Present: normal affect, normal mood Skin exam: Present: warm, dry, intact, normal color. Absent: rash Course Vital Signs 12/31/20 12/31/20 12/31/20 08:23 12:55 12:56 Temperature 98.1 F Pulse Rate 105 H 80 81 Respiratory 18 17 18 Rate Blood Pressure 108/57 146/85 146/85 O2 Sat by Pulse 95 93 L 98 Oximetry 12/31/20 12/31/20 12/31/20 13:00 13:30 14:00 Temperature Pulse Rate 71 77 73 Respiratory 22 23 21 Rate Blood Pressure 146/85 132/73 131/78 O2 Sat by Pulse 93 L 93 L 94 L Oximetry 12/31/20 12/31/20 12/31/20 14:30 15:00 15:30 Temperature Pulse Rate 64 75 69 Respiratory 23 18 24 Rate Blood Pressure 143/80 127/81 136/78 O2 Sat by Pulse 93 L 92 L 93 L Oximetry 12/31/20 16:30 Temperature Pulse Rate 72 Respiratory 22 Rate Blood Pressure 142/86 O2 Sat by Pulse 94 L Oximetry Medical Decision Making - Medical Decision Making Patient presents with cough and shortness of breath. Troponin is negative. D- dimer is negative. Chest x-ray confirms known diagnosis of COVID-19. Patient is given steroids and Robitussin. She is feeling better. Her pulse oximetry is in the high 90s. She does not require admission. She does not meet criteria for monoclonal antibody therapy. She is stable for discharge. - Lab Data Result diagrams: 12/31/20 13:29 12/31/20 13:29 Lab Results 12/31/20 12/31/20 12/31/20 Range/Units 13:29 13:29 13:29 WBC 4.9 (3.8-10.6) k/uL RBC 4.14 (3.80-5.40) m/uL Hgb 11.2 L (11.4-16.0) gm/dL Hct 34.4 (34.0-46.0) % MCV 83.0 (80.0-100.0) fL MCH 27.0 (25.0-35.0) pg MCHC 32.6 (31.0-37.0) g/dL RDW 15.4 (11.5-15.5) % Plt Count 162 (150-450) k/uL MPV 8.2 Neutrophils % 86 % Lymphocytes % 7 % Monocytes % 4 % Eosinophils % 0 % Basophils % 0 % Neutrophils # 4.2 (1.3-7.7) k/uL Lymphocytes # 0.4 L (1.0-4.8) k/uL Monocytes # 0.2 (0-1.0) k/uL Eosinophils # 0.0 (0-0.7) k/uL Basophils # 0.0 (0-0.2) k/uL PT 10.0 (9.0-12.0) sec INR 0.9 (<1.2) APTT 22.7 (22.0-30.0) sec D-Dimer 0.51 (<0.60) mg/L FEU Sodium 136 L (137-145) mmol/L Potassium 3.9 (3.5-5.1) mmol/L Chloride 103 (98-107) mmol/L Carbon Dioxide 25 (22-30) mmol/L Anion Gap 8 mmol/L BUN 11 (7-17) mg/dL Creatinine 0.82 (0.52-1.04) mg/dL Est GFR (CKD-EPI)AfAm >90 (>60 ml/min/1.73 sqM) Est GFR (CKD-EPI)NonAf 87 (>60 ml/min/1.73 sqM) Glucose 158 H (74-99) mg/dL Calcium 8.7 (8.4-10.2) mg/dL Total Bilirubin 0.5 (0.2-1.3) mg/dL AST 25 (14-36) U/L ALT 25 (4-34) U/L Alkaline Phosphatase 67 (38-126) U/L Troponin I (0.000-0.034) ng/mL NT-Pro-B Natriuret Pep pg/mL Total Protein 7.2 (6.3-8.2) g/dL Albumin 3.9 (3.5-5.0) g/dL 12/31/20 12/31/20 Range/Units 13:29 13:29 WBC (3.8-10.6) k/uL RBC (3.80-5.40) m/uL Hgb (11.4-16.0) gm/dL Hct (34.0-46.0) % MCV (80.0-100.0) fL MCH (25.0-35.0) pg MCHC (31.0-37.0) g/dL RDW (11.5-15.5) % Plt Count (150-450) k/uL MPV Neutrophils % % Lymphocytes % % Monocytes % % Eosinophils % % Basophils % % Neutrophils # (1.3-7.7) k/uL Lymphocytes # (1.0-4.8) k/uL Monocytes # (0-1.0) k/uL Eosinophils # (0-0.7) k/uL Basophils # (0-0.2) k/uL PT (9.0-12.0) sec INR (<1.2) APTT (22.0-30.0) sec D-Dimer (<0.60) mg/L FEU Sodium (137-145) mmol/L Potassium (3.5-5.1) mmol/L Chloride (98-107) mmol/L Carbon Dioxide (22-30) mmol/L Anion Gap mmol/L BUN (7-17) mg/dL Creatinine (0.52-1.04) mg/dL Est GFR (CKD-EPI)AfAm (>60 ml/min/1.73 sqM) Est GFR (CKD-EPI)NonAf (>60 ml/min/1.73 sqM) Glucose (74-99) mg/dL Calcium (8.4-10.2) mg/dL Total Bilirubin (0.2-1.3) mg/dL AST (14-36) U/L ALT (4-34) U/L Alkaline Phosphatase (38-126) U/L Troponin I <0.012 (0.000-0.034) ng/mL NT-Pro-B Natriuret Pep 291 pg/mL Total Protein (6.3-8.2) g/dL Albumin (3.5-5.0) g/dL Twelve-lead EKG shows ventricular rate 104 bpm, normal NH interval and QRS complex is, no ST elevation or depression, interpreted by me as sinus tachycardia. 12/31/20 17:15 Disposition Clinical Impression: COVID-19 Disposition: HOME SELF-CARE Condition: Good Instructions (If sedation given, give patient instructions): Coronavirus Disease 2019 (COVID-19) Prescriptions: methylPREDNISolone Dose Pack [Medrol Dose Pack] 4 mg PO DIRECTED #21 tab guaiFENesin-Coden 100-10MG/5ML [Robitussin AC] 10 ml PO Q6H PRN 3 Days #120 ml PRN Reason: Cough Is patient prescribed a controlled substance at d/c from ED?: No Referrals: Dre Peña MD [Primary Care Provider] - 1-2 days
== END 2020-12-31 17:35 | disposition home or self-care (01) ==
LOC: EC 08:11
DX: U07.1 COVID-19 (principal); K21.9 Gastro-esophageal reflux disease without esophagitis; F41.9 Anxiety disorder, unspecified
CPT/HCPCS: 99285; 96374; 36415; 93005; 85379; 83880; 80053; 84484; 85025; 85610; 85730; 71046; J1100

== ENCOUNTER → 2021-01-23 | Outpatient (CLI) | payer BC ==
--- NOTE | 2021-01-23 10:28 | XR ---
EXAMINATION TYPE: XR chest 2V DATE OF EXAM: 01/23/2021 COMPARISON: 12/31/2020 TECHNIQUE: PA and lateral views submitted. HISTORY: Shortness of breath FINDINGS: The lungs are clear and there is no pneumothorax, pleural effusion, or focal pneumonia. Heart size normal. No overt failure. Coarsened interstitium. IMPRESSION: 1. Correlate for bronchitis or mild interstitial pneumonitis
== END | disposition home or self-care (01) ==
LOC: RADXRMAIN 09:43
PROVIDERS: ATTEND Nurse Practitioner Family
DX: R06.02 Shortness of breath (principal)
CPT/HCPCS: 71046

== ENCOUNTER → 2023-04-06 | Outpatient (CLI) | payer BC ==
[2023-04-06 11:29] LABS: Basophils % (A) 1 %; Eosinophils # (A) 0.4 k/uL (0-0.7); Eosinophils % (A) 6 %; HGB 12.2 gm/dL (11.4-16.0); Lymphocytes % (A) 34 %; MCH 26.8 pg (25.0-35.0); MCHC 32.9 g/dL (31.0-37.0); MCV 81.4 fL (80.0-100.0); Mean Platelet Volume 7.2; Monocytes # (A) 0.3 k/uL (0-1.0); Monocytes % (A) 5 %; Neutrophils # (A) 3.2 k/uL (1.3-7.7); Neutrophils % (A) 54 %; Platelet Count 294 k/uL (150-450); RBC 4.54 m/uL (3.80-5.40); RDW 15.2 % (11.5-15.5)
== END | disposition home or self-care (01) ==
LOC: LABWHC1 10:36
PROVIDERS: ATTEND Nurse Practitioner Family
DX: D64.9 Anemia, unspecified (principal)
CPT/HCPCS: 36415; 85025

== ENCOUNTER → 2024-05-26 | Outpatient (CLI) | payer BC ==
[2024-05-26 15:12] LABS: HCT 36.5 % (37.2-46.3); HGB 11.1 g/dL (12.0-15.0); MCH 25.2 pg (27.0-32.0); MCHC 30.4 g/dL (32.0-37.0); MCV 82.8 FL (80.0-97.0); Mean Platelet Volume 10.2 FL (9.5-12.2); NRBC Per 100 WBC 0 X 10*3/uL (0.00-0.01); Platelet Count 291 X 10*3/uL (140-440); RBC 4.41 X 10*6/uL (4.10-5.20)
[2024-05-26 15:39] LABS: Testosterone 36.7 ng/dL (9.01-47.94)
[2024-05-26 15:43] LABS: Prolactin 25.4 ng/mL (2.800-29.200)
[2024-05-26 15:50] LABS: Ferritin 20.2 ng/mL (10.0-291.0)
[2024-05-26 15:54] LABS: % Iron Saturation 8.53 (12.00-45.00); BUN/Creat Ratio 11.33 Ratio (12.00-20.00); Blood Urea Nitrogen 10.2 mg/dL (9.0-27.0); Carbon Dioxide 24.4 mmol/L (21.6-31.8); Chloride 103 mmol/L (96-109); Chol/HDL Ratio 5.62 Ratio; Glucose 126 mg/dL (70-110); Iron 37 UG/DL (50-170); LDL Cholesterol,Calculated 144.2 mg/dL (0.0-131.0); Potassium 4.3 mmol/L (3.5-5.5); Sodium 136 mmol/L (135-145); Total Iron Binding Capacity 434 UG/DL (228-460)
[2024-05-26 15:55] LABS: ALT 27 U/L (8-44); AST 23 U/L (13-35); Albumin 3.8 g/dL (3.8-4.9); Albumin/Globulin Ratio 1.41 Ratio (1.60-3.17); Alkaline Phosphatase 75 U/L (41-126); Calcium 9.1 mg/dL (8.7-10.3); Globulin 2.7 g/dL (1.6-3.3); T4, Free (Free Thyroxine) 0.77 ng/dL (0.80-1.80); Total Bilirubin 0.3 mg/dL (0.3-1.2); Total Protein 6.5 g/dL (6.2-8.2)
[2024-05-26 16:01] LABS: Luteinizing Hormone 14.1 mIU/mL
[2024-05-27 11:51] LABS: Anti-Mullerian Hormone 0.65 ng/mL
== END | disposition home or self-care (01) ==
LOC: LABWHC1 08:26
PROVIDERS: ATTEND Internal Medicine Infectious Disease
DX: E66.9 Obesity, unspecified (principal); N95.9 Unspecified menopausal and perimenopausal disorder
CPT/HCPCS: 36415; 80053; 80061; 82397; 82670; 82728; 83001; 83002; 83036; 83498; 83525; 83540; 83550; 84146; 84402; 84403; 84439; 84443; 85027